=== PATIENT | male | born 1950 | race African-American/Black ===

== ENCOUNTER 2022-10-11 08:17 | Emergency (ER) | payer OTHER ==
--- OUTSIDE RECORDS SUMMARY | 2022-10-11 08:23 | XMS REPORT | Continuity of Care Document ---
:1950 Author Organization [facility] t Address [address] [place] [address] Care Team Providers Name Role Phone DARELL Attending Clinician Unavailable Mauri Brown Attending Clinician [phone] Edward Attending Clinician Unavailable Demarco Vallejo Attending Clinician DARELL Admitting Clinician Unavailable Edward Admitting Clinician Unavailable Keiry Valerio Admitting Clinician Payers Payer Name Policy Type Policy Number Effective Date Expiration Date Karlee DARLING ([facility]) [id number] 2021 00:00:00 Problems Condition Condition Condition Status Onset Resolution Last Treating Co mments Source Name Details Category Date Date Treatment Clinician Date Hyperchole Hyperchole Problem Active [facility] sterolemia sterolemia 02-05 [facility] Cannabis Cannabis Problem Active [facility] dependence Dependence 02-05 [facility] 00:00: ty [facility] Persistent Persistent Problem Active [facility] alcohol Alcohol 02-05 Communi abuse Abuse 00:00: ty 00 [facility] Chronic Chronic Problem Active [place] pain Pain 02-05 Communi syndrome Syndrome 00:00: ty 00 [facility] Hypertensi Hypertensi Problem Active S ween[facility] ve ve 02-05 Communi disorder Disorder 00:00: ty [facility] Coronary Coronary Problem Active [place] arterioscl Arterioscl 02-05 Co mmuni erosis erosis 00:00: ty [facility] 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 00:00: ty interverte Interverte 00 Ho spita bral disc bral Disc l [facility] Chronic Chronic Problem Active [place] back pain Back Pain 02-05 Comm uni 00:00: ty 00 [facility] Stented Stented Problem Active [place] artery Artery 02-05 Communi 00:00: ty 00 [facility] Pain of Pain of Problem Active [place] left knee Left Knee 02-05 Comm uni region Region 00:00: ty 00 [facility] 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 00 Ho spita [facility] Heavy Heavy Problem Active [place] smoker Smoker 02-05 Communi (over 20 (over 20 00:00: ty per day) per Day) 00 [facility] ACUTE ACUTE Diagnosis Active 2015-092016-06-06 Mem oria RENAL RENAL 0- 23:48:00 l FAILURE, FAILURE, 00:00: Blue cazares HYPONATREM HYPONATREM 00 IA, SYNCO IA, SYNCO Active 06/06/2016 [facility] Mo YAMINI, FALL YAMINI, FALL Diagnosis Active 2015-092016-06-21 Memoria Active 005 22:14:00 l 06/06/2016 00:00: Blue cazares [place] [id number] 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 ACUTE ACUTE Diagnosis Active 2016-06-21 Mem oria KIDNEY KIDNEY 22:14:00 l FAILURE, FAILURE, Blue cazares UNSPECIFIE UNSPECIFIE D D Active [facility] Allergies, Adverse Reactions, Alerts Allergy Allergy Status Severity Reaction(s) Onset Inactive Treating Comm ents Source Name Type Date Date Clinician iodine iodine Active Andree Hassan Social History Social Habit Start Date Stop Date Quantity Comments Source Social History 2016-06-07 2016-06-07 Arturo duong 05:03:10 05:03:10 Smoking Status Start Date Stop Date Source Heavy Tobacco Smoker [place] [facility] Medications Ordered Filled Start Stop Current Ordering Indication Dosage Frequency Signature Comments Components Source Medication Medication Date Date Medication? Clinician (SIG) Name Name Acetaminoph 2015-09 Yes 1 tab, PO, Memoria en 300 MG / 0-16 Q4H, PRN l Codeine 16:16: Pain, X 4 Patsy nn Phosphate 00 day, # 24 30 MG Oral tab, 0 Tablet Refill(s) [Tylenol with Codeine #3] tamsulosin 2015-09 Yes 0.4 mg = 1 M emoria 0.4 mg oral 0-16 cap, PO, l capsule 16:10: After [place] 00 Dinner, # 30 cap, 0 Refill(s), Pharmacy: [place] [address] Probiotic 2015-09 Yes 1 cap, PO, Me moria Formula 0-16 Daily, # l oral 16:10: 30 cap, 0 [place] capsule 00 Refill(s), Pharmacy: [place] [address] Metronidazo 2015-09 Yes 500 mg = 1 Memoria le 500 MG 0-16 tab, PO, l Oral Tablet 16:10: Q8H, X 7 He rmann [Flagyl] 00 day, # 21 tab, 0 Refill(s), Pharmacy: [place] [address] Ciprofloxac 2015-09 Yes 250 mg = 1 Memoria in 250 MG 0-16 tab, PO, l Oral Tablet 16:10: Q12H, X 7 H ermann [Cipro] 00 day, # 14 tab, 0 Refill(s), Pharmacy: [place] [address] metoprolol 2015-09 Yes 25 mg = 1 Me moria tartrate 25 0-16 tab, PO, l mg oral 16:10: Q12H, # 60 Herm arden tablet 00 tab, 0 Refill(s), Pharmacy: [place] [address] Morphine 2015-09 No Notes: Memoria 0-15 (Same l 12:54: as:MORPhin Mo 00 e Sulfate) Acetaminoph 2015-09 No Notes: Gurvinder pamela en 325 MG / 0-15 (Same as: l Hydrocodone 12:53: [place] Patsy nn Bitartrate 00 325/5) Do 5 MG Oral not exceed Tablet 4gm/day of [[place] acetaminop 5/325] hen. fat 2015-09 No Notes: Memoria emulsion, 0-15 (Same as: l intravenous 03:00: Intralipid Mo 00 , Liposyn) Infuse through a 1.2 micron filter TPN, adult 2015-09 No 1,490 mL, Me moria solution 0-15 Rate: 60 l 1,490 mL 03:00: ml/hr, Infuse over: 24.8 hr, Route: IV, Dosing Weight 70.909 kg, Total Volume: 1,490, Start date: 06/15/16 22:00:00 CDT, Duration: 24 hr, Stop date: 06/16/16 21:59:00 CDT Marcaine 2015-09 No Notes: Memoria HCl with 0-14 (bupivacai l Epinephrine 03:48: ne-epi Herm arden 0.5%-1:200, 00 0.5%-1:200 000 ,000 30 ml preservativ VL) Not e-free for use in injectable continuous solution infusion. (Same As: Marcaine w/Epi) Kenalog-40 2015-09 No Notes: Memor ia 0-14 "Preservat l 03:48: azra Free" [place] 00 Zosyn 2015-09 No Notes: Memoria 0-14 (Same as: l 01:00: Zosyn) Dosing based on Piperacill in component MEDICATION WASTE Product Size: 3375 mg Product Wasted: ___ mg Morphine 2015-09 No Notes: Memoria 0-13 (Same l 18:24: as:MORPhin [place] 00 e Sulfate) Marcaine 2015-09 No Notes: Memoria HCl with 0-13 (bupivacai l Epinephrine 15:20: ne-epi Herm arden 0.5%-1:200, 00 0.5%-1:200 000 ,000 30 ml injectable VL) Not solution for use in continuous infusion. (Same As: Marcaine w/Epi) TPN, adult 2015-09 No 1,490 mL, Me moria solution 0-13 Rate: 60 l 1490 mL 03:00: ml/hr, [place] 00 Infuse over: 24.8 hr, Route: IV, Dosing Weight 70.909 kg, Total Volume: 1,490, Start date: 06/13/16 22:00:00 CDT, Duration: 1 day, Stop date: 06/21/16 19:27:00 CDT fat 2015-09 No Notes: Memoria emulsion, 0-13 (Same as: l intravenous 03:00: Intralipid [place] 00 , Liposyn) potassium 2015-09 No Notes: Memori a chloride 0-12 (Same as: l 19:00: KCL) [place] Infuse no faster than 10 mEq/hr if given peripheral ly. sodium 2015-09 No 1,000 mL, Memori a chloride 0-12 Rate: 40 l 0.9% 1000 08:20: ml/hr, Blue n ml INJ 00 Infuse 1,000 mL over: 25 hr, Route: IV, Dosing Weight 70.909 kg, Total Volume: 1,000, Start date: 06/13/16 3:20:00 CDT, Duration: 30 day, Stop date: 07/13/16 3:19:00 CASTING COORDINATOR TPN, adult 2015-09 No 1,490 mL, Me moria solution 0-12 Rate: 60 l 1490 mL 03:00: ml/hr, Infuse over: 24.8 hr, Route: IV, Dosing Weight 70.909 kg, Total Volume: 1,490, Start date: 06/12/16 22:00:00 CDT, Duration: 1 day, Stop date: 06/13/16 15:28:00 CDT MORPhine 2015-09 No 30 mg, 30 Gurvinder pamela sulfate [employer] 0-12 mL, Route: l 30 mg/30 ml 01:00: IV, Blue n INJ syringe 00 Initial 30 mg Loading Dose: 2 mg, [employer]OM[employer]BILE [employer] Dose: 1 mg, AUTOM[employer]BILE [employer]ER Lockout: 10 minutes, Continuous Basal Rate: 0 mg, 4 Hour Limit (In MG): 30, Drug Form: INJ, Continuous , Start date: 06/12/16 20:00:00 CDT, Duration: 30 day, Stop date: 07/12/16.. . morphine 2015-09 No Notes: Memoria Sulfate 30 0-10 PCADose: l mg + 09:12: 1mg Delay: 10min Basal rate: 4hr limit:30mg (Same as:[place]) Metronidazo 2015-09 No Notes: Gurvinder pamela le 0-10 (Same as: l 07:37: Flagyl) Avoid alcohol. Protonix 2015-09 No Notes: For Mem oria 0-09 IV push l 21:30: reconstitu [place] 00 te with 10 ml 0.9% sodium chloride and push over 2 minutes. (Same as: Protonix) Metronidazo 2015-09 No Notes: Gurvinder pamela le 0-09 (Same as: l 16:00: Flagyl) Mo 00 Take with food/ avoid alcohol 200 ML 2015-09 No Notes: Do Memori a Ciprofloxac 0-09 not l in 2 MG/ML 15:00: refrigerat H ermann Injection 00 e [Cipro] Aspirin 2015-09 No Notes: Do Memor ia 0-09 not crush l 14:00: or chew. [place] (Same As: Ecotrin) Finasteride 2015-09 No Notes: Gurvinder pamela 0-09 (Same as: l 14:00: Proscar) "Do Not Crush" Women of childbeari ng age should not touch or handle broken tablets Morphine 2015-09 No Notes: Memoria 0-09 PCADose: l 09:30: 1mg Delay: 10mins Basal rate:0 4hr limit 30mg: (Same as:[place]) glycopyrrol 2015-09 No Route: IV, Memoria ate (ANES) 0-09 Drug form: l 09:08: INJ, ONCE, Stop date: 06/10/16 4:08:00 CDT neostigmine 2015-09 No Route: IV, Memoria (ANES) 0-09 Drug form: l 09:08: INJ, ONCE, Stop date: 06/10/16 4:08:00 CDT Calcium 2015-09 No 1,000 mL, Memor ia Chloride 0-09 Rate: 125 l 0.0014 09:07: ml/hr, MEQ/ML / 00 Infuse Potassium over: 8 Chloride hr, Route: 0.004 IV, Dosing MEQ/ML / Weight Sodium 70.909 kg, Chloride Total 0.103 Volume: MEQ/ML / 1,000, Sodium Start Lactate date: 0.028 06/10/16 MEQ/ML 4:07:00 Injectable CDT, Solution Duration: 30 day, Stop date: 07/10/16 4:06:00 CASTING COORDINATOR Naloxone 2015-09 No Notes: Memoria 0-09 Same as l 09:07: Narcan norepinephr 2015-09 No Route: IV, Memoria ine (ANES) 0-09 Drug form: l 08:43: INJ, ONCE, Stop date: 06/10/16 3:43:00 CDT metoprolol 2015-09 No Route: IV, M emoria (ANES) 0-09 Drug form: l 08:43: INJ, ONCE, Stop date: 06/10/16 3:43:00 CDT succinylcho 2015-09 No Route: IV, Memoria line (ANES) 0-09 Drug form: l 08:38: INJ, ONCE, Stop date: 06/10/16 3:38:00 CDT propofol 2015-09 No Route: IV, Mem oria (ANES) 0-09 Drug form: l 08:38: INJ, ONCE, Stop date: 06/10/16 3:38:00 CDT rocuronium 2015-09 No Route: IV, M emoria (ANES) 0-09 Drug form: l 08:38: INJ, ONCE, Stop date: 06/10/16 3:38:00 CDT midazolam 2015-09 No Route: IV, Me moria (ANES) 0-09 Drug form: l 08:38: SOLN, ONCE, Stop date: 06/10/16 3:38:00 CDT fentaNYL 2015-09 No Route: IV, Mem oria (ANES) 0-09 Drug form: l 08:38: INJ, ONCE, Stop date: 06/10/16 3:38:00 CDT LR 1000 mL 2015-09 No Route: IV, M emoria INJ (ANES) 0-09 Total l 07:35: Volume: [place] 00 1,000, Start date: 06/10/16 2:35:00 CDT, Stop date: 06/10/16 3:35:00 CDT Cefoxitin 2015-09 No Notes: Memori a 0-09 (Same As: l 06:00: Mefoxin) MEDICATION WASTE Product Size: 2000 mg Product Wasted: __0_ mg Benadryl 2015-09 Yes Notes: Memoria 0-09 (Same as: l 03:32: Benadryl) Prednisone 2015-09 Yes Notes: Memor ia 0-09 Take with l 03:31: food. metoprolol 2015-09 No Notes: Memor ia tartrate 0-09 (Same as: l 02:00: Lopressor) Flomax 2015-09 No Notes: Memoria 0-08 (Same As: l 22:00: Flomax) "Do Not Crush" D5W 1/2NS 2015-09 No 1,000 mL, Mem oria 1,000 mL 0-08 Rate: 75 l 20:58: ml/hr, Infuse over: 13.3 hr, Route: IV, Dosing Weight 70.909 kg, Total Volume: 1,000, Start date: 06/09/16 15:58:00 CDT, Duration: 30 day, Stop date: 07/09/16 15:57:00 CASTING COORDINATOR Metoprolol 2015-09 No Notes: Memor ia 0-08 (Same as: l 19:52: Lopressor) Push over 2 minutes Folic Acid 2015-09 Yes 1 mg = 1 Mem oria 1 MG Oral 0-08 tab, PO, l Tablet 19:31: Daily, # [place] 00 14 tab, 0 Refill(s), Pharmacy: [facility] amLODIPine 2015-09 Yes 5 mg = 1 Mem oria 5 mg oral 0-08 tab, PO, l tablet 19:31: Daily, # [place] 00 30 tab, 0 Refill(s), Pharmacy: [facility] simvastatin 2015-09 Yes 20 mg = 1 M emoria 20 mg oral 0-08 tab, PO, l tablet 19:31: Bedtime, # Patsy nn 00 30 tab, 0 Refill(s), Pharmacy: [facility] Ciprofloxac 2015-09 No 250 mg = 1 Memoria in 250 MG 0-08 tab, PO, l Oral Tablet 19:31: Q12H, for H ermann [Cipro] 00 UTI, X 3 day, # 6 tab, 0 Refill(s), Pharmacy: [facility] thiamine 2015-09 Yes 100 mg = 1 Mem oria 100 mg oral 0-08 tab, PO, l tablet 19:31: Daily, X Mo 00 14 day, # 14 tab, 0 Refill(s), Pharmacy: [facility] [id number] Acetaminoph 2015-09 Yes 1 tab, PO, Memoria en 325 MG / 0-08 Q6H, PRN l Hydrocodone 19:20: Pain Score Mo Bitartrate 00 7-10, 0 7.5 MG Oral Refill(s) Tablet [[place] 7.5/325] simvastatin 2015-09 No 20 mg = 1 M emoria 20 mg oral 0-08 tab, PO, l tablet 19:19: Bedtime, 0 Patsy nn 00 Refill(s) clopidogrel 2015-09 Yes 75 mg = 1 M emoria 75 MG Oral 0-08 tab, PO, l Tablet 19:19: Daily, 0 Mo [Plavix] 00 Refill(s) Amlodipine 2015-09 No Notes: Memor ia 0-08 (Same as: l 17:36: Norvasc) Milk of 2015-09 No Notes: Memoria Magnesia 0-07 (Same as: l 21:02: Milk of [place]es[place], MOM) Folic Acid 2015-09 No Notes: Memor ia 0-07 (Same as: l 14:00: Folvite) Thiamine 2015-09 No Notes: [facility] 0-07 (Same As: l 14:00: Vitamin B1) Ceftriaxone 2015-09 No Notes: Gurvinder pamela 0-07 (Same As: l 13:58: Rocephin). Use with 100 mL NS and infuse over 30 min MEDICATION WASTE Product Size: 1000 mg Product Wasted: ___ mg Famotidine 2015-09 No Notes: Memor ia 20 MG Oral 0-06 (Same as: l Tablet 22:00: Pepcid) Lovenox 2015-09 No Notes: [facility]oria 0-06 (Same as: l 17:00: Lovenox) Ativan 2015-09 No Notes: [facility] 0-06 (Same as: l 16:44: Ativan) Streptococc 2015-09 No Notes: Gurvinder pamela us 0-06 Lightly l pneumoniae 14:00: roll vial He rmann serotype 1 00 (DO NOT capsular SHAKE) antigen before diphtheria administra [id number] tion. protein (Same as: conjugate Prevnar vaccine / 13) Streptococc us pneumoniae serotype 14 capsular antigen diphtheria [id number] protein conjugate vaccine / Streptococc us pneumoniae serotype 18C capsular antigen d influenza 2015-09 No Notes: Memori a virus 0-06 (Same as: l vaccine, 14:00: Fluzone Blue n inactivated 00 Quadrivale nt, Fluarix Quadrivale nt) For 3 years of age and older (0.5 mL IM) Shake well before use Protonix 2015-09 No Notes: Memoria 0-06 Tablet l 12:30: should not [place] 00 be chewed or crushed. (Same as: Protonix) sodium 2015-09 No 1,000 mL, Memori a chloride 0-06 Rate: 100 l 0.9% 1000 06:33: ml/hr, Blue n ml INJ 00 Infuse 1,000 mL over: 10 hr, Route: IV, Dosing Weight 70.909 kg, Total Volume: 1,000, Start date: 06/07/16 1:33:00 CDT, Duration: 30 day, Stop date: 07/07/16 1:32:00 CDT Ondansetron 2015-09 No Notes: Gurvinder pamela 0-06 (Same as: l 06:17: Zofran) [place] 00 MEDICATION WASTE Product Size: 4 mg Product Wasted: ___ mg Morphine 2015-09 No Notes: Memoria 0-06 (Same l 06:17: as:MORPhin [place] 00 e Sulfate) Acetaminoph 2015-09 No Notes: Do M emoria en 0-06 not exceed l 06:17: 4 gm/day. Mo 00 (Same as: Tylenol) Plavix 2015-09 No PO, Daily, Memor ia 0-06 0 l 00:37: Refill(s) [place] 00 Acetaminoph 2015-09 No 1 tab, PO, Memoria en 325 MG / 0-06 Daily, PRN l Hydrocodone 00:37: Pain Score [place] Bitartrate 00 6-10, 0 7.5 MG Oral Refill(s) Tablet atorvastati atorvastati No 1 Q1D atorvastat [place] n 10 mg n 10 mg in 10 mg Commu ni tablet Take tablet Take tablet ty 1 tablet 1 tablet Take 1 Hospi ta every day every day tablet l by oral by oral every day Clin ics route. route. by oral route. carvedilol carvedilol No carvedilol [place] 12.5 mg 12.5 mg 12.5 mg Commun i tablet Take tablet Take tablet ty 1 tablet 1 tablet Take 1 Hospi ta BID by BID by tablet BID l mouth mouth by mouth Clinics clopidogrel clopidogrel No clopidogre [place] 75 mg 75 mg l 75 mg Communi tablet Take tablet Take tablet ty 1 tablet 1 tablet Take 1 Hospi ta daily by daily by tablet l mouth mouth daily by Clinics mouth cyclobenzap cyclobenzap No cyclobenza [place] rine 10 mg rine 10 mg mayra 10 Communi tablet take tablet take mg tablet ty 1 tablet 1 tablet take 1 Hospi ta BID as BID as tablet BID l needed for needed for as needed Clinics muscle muscle for muscle spasms spasms spasms furosemide furosemide No furosemide [place] 20 mg 20 mg 20 mg Communi tablet Take tablet Take tablet ty 1 tablet 1 tablet Take 1 Hospi ta daily as daily as tablet l needed for needed for daily as Clinics swelling swelling needed for swelling hydrocodone hydrocodone No hydrocodon [place] 7.5 7.5 e 7.5 Communi mg-acetamin mg-acetamin mg-acetami ty ophen 325 ophen 325 nophen 325 Hospita mg tablet mg tablet mg tablet l TAKE 1 TAKE 1 TAKE 1 Clinics TABLET BY TABLET BY TABLET BY MOUTH TWICE MOUTH TWICE MOUTH DAILY DAILY TWICE NEEDED FOR NEEDED FOR DAILY MODERATE MODERATE NEEDED FOR PAIN PAIN MODERATE PAIN vitamin D3 vitamin D3 No 1capsul Q1D vitamin D3 [place] 1,250 mcg 1,250 mcg e(s) 1,250 mcg Communi (50,000 (50,000 (50,000 ty unit)-vitam unit)-vitam unit)-[facility] in K2 200 in K2 200 min K2 200 l mcg capsule mcg capsule mcg C linics Take 1 Take 1 capsule capsule capsule Take 1 every day every day capsule by oral by oral every day route. route. by oral route. Immunizations Ordered Immunization Filled Immunization Date Status Commen ts Source Name Name influenza, influenza, 2021-05-03 Completed [place] injectable, injectable, 00:00:00 [facility] quadrivalent quadrivalent [facility] pneumococcal pneumococcal 2018-07-02 Completed [place] polysaccharide PPV23 polysaccharide PPV23 00:00:00 [facility] pneumococcal 2016-06-07 Completed [facility] 13-valent vaccine 13:54:00 [place] influenza virus 2016-06-07 Completed [facility] vaccine, inactivated 13:53:00 Herm arden Vital Signs Vital Name Observation Time Observation Value Comments Source BP Diastolic 2022-02-05 00:00:00 68 mm[Hg] [facility] s Height 2022-02-05 00:00:00 69 [in_i] [facility] s BMI (Body Mass 2022-02-05 00:00:00 22.3 kg/m2 [facility] BP Systolic 2022-02-05 00:00:00 108 mm[Hg] [facility] s Body Weight 2022-02-05 00:00:00 2416 [oz_av] [facility] s Respitory Rate 2016-06-17 17:39:00 Memori al Mo Temperature Oral (F) 2016-06-17 17:39:00 98.6 F [facility] [place] Heart Rate 2016-06-17 17:39:00 [facility] Systolic (mm Hg) 2016-06-17 17:39:00 Gurvinder rial Mo Diastolic (mm Hg) 2016-06-17 17:39:00 Mem orial [place] Systolic (mm Hg) 2016-06-17 13:29:00 Gurvinder rial Mo Diastolic (mm Hg) 2016-06-17 13:29:00 Mem orial [place] Heart Rate 2016-06-17 13:29:00 [facility] Mo Respitory Rate 2016-06-17 13:29:00 Memori al Mo Temperature Oral (F) 2016-06-17 13:29:00 98.1 F [facility] [place] Respitory Rate 2016-06-17 12:33:00 Memori al Mo Heart Rate 2016-06-17 09:00:00 [facility] Mo Systolic (mm Hg) 2016-06-17 09:00:00 Gurvinder rial Mo Diastolic (mm Hg) 2016-06-17 09:00:00 Mem orial Mo Temperature Oral (F) 2016-06-17 09:00:00 98.4 F [facility] Mo Height 2016-06-07 05:15:00 175.26 cm Arturo Hassan Weight 2016-06-07 05:08:00 Arturo Hassan BMI Calculated 2016-06-07 05:08:00 Ruben Greene Height 2016-06-07 05:08:00 175.26 cm Arturo Hassan Procedures Procedure Date / Time Performing Clinician Source Performed Appendectomy Arturo Hassan Placement of stent in [facility] cardiac conduit Hernia Repair [facility] Appendectomy [facility] Dental Surgery Procedure [facility] Back Surgery [facility] Placement of Stent in [facility] s Encounters Start End Encounter Admission Attending Care Care Encounter Source Date/Time Date/Time Type Type Clinicians Facility Department ID 2022-05-26 2022-05-26 Outpatient ERICKSON_R [facility] [id number] [place] 00:00:00 00:00:00 0924 [facility] 2022-04-21 2022-04-21 Outpatient ERICKSON_R [facility] [address] [place] 00:00:00 00:00:00 0820 [facility] 2022-03-14 2022-03-14 Outpatient ERICKSON_R [facility] [address] [place] 05:20:00 05:20:00 0713 [facility] i [facility] 2022-02-05 2022-02-05 Outpatient ERICKSON_R [facility] [address] [place] 12:46:00 12:46:00 0606 Commun i ty [facility] Clinics 2022-02-05 2022-02-05 Mauri [facility] [place] 00:00:00 00:00:00 [facility] [address] [facility] [address] Clinic s [place], [place] CL[place]IC, [id number] KARLI , Ph. 2022-02-05 2022-02-05 Outpatient Karli [facility] [id number] 00:00:00 00:00:00 Mauri [id number] [place] [id number] 2022-02-02 2022-02-02 Outpatient ERICKSON_R [facility] [address] [place] 10:16:00 10:16:00 0603 [facility] i [facility] 2020-10-31 2020-10-31 Outpatient Young_J MMG [id number] [id number] [place] 02:01:00 02:01:00 [facility] 2016-06-07 2016-06-17 Inpatient nullFlavo [facility] [id number] Mem[place] 06:17:00 19:00:00 r [place] 79 l [facility] 2016-06-07 2016-06-17 Outpatient Ogunbiyi, [facility] [id number] 01:17:00 14:00:00 Demarco 79 Иринаla Results Test Description Test Time Test Comments Results Result Comments Source CHEM PANEL 2016-06-17 09:00:00 Test Item Value Reference Range Interpretation Comme nts CO2 (test code = CO2) 25 24-32 [facility] [id number] 09:00:00 Test Item Value Reference Range Interpretation Comments Potassium Lvl (test code = Potassium 4.0 3.5-5.1 Lvl) [facility] [id number] 09:00:00 Test Item Value Reference Range Interpretation Comments Chloride Lvl (test code = Chloride Lvl) 103 95-109 [facility] [id number] 09:00:00 Test Item Value Reference Range Interpretation Comments eGFR (test code = eGFR) 99 [facility] [id number] 09:00:00 Test Item Value Reference Range Interpretation Comments B/C Ratio (test code = B/C Ratio) 12 6-25 [facility] [id number] 09:00:00 Test Item Value Reference Range Interpretation Comments Globulin (test code = Globulin) 5.0 2.7-4.2 [facility] [id number] 09:00:00 Test Item Value Reference Range Interpretation Comments A/G Ratio (test code = A/G Ratio) 0.4 0.7-1.6 [facility] [id number] 09:00:00 Test Item Value Reference Range Interpretation Comments ALANINE AMINOTRANSFERASE 60 See_Comment [A utomated message] (test code = ALANINE The sys tem which AMINOTRANSFERASE) generated this result transmitted ref erence range: <=65. Th e reference range was not used to int erpret this result as normal/abnormal . [facility]2016-10-16 09:00:00 Test Item Value Reference Range Interpretation Comments Alk Phos (test code = Alk Phos) 154 39-136 [facility]2016-10-16 09:00:00 Test Item Value Reference Range Interpretation Comments Glucose Lvl (test code = Glucose Lvl) 87 70-99 [facility]2016-10-16 09:00:00 Test Item Value Reference Range Interpretation Comments Albumin Lvl (test code = Albumin Lvl) 2.1 3.5-5.0 [facility]2016-10-16 09:00:00 Test Item Value Reference Range Interpretation Comments Bili Total (test code = Bili Total) 0.3 0.2-1.3 [facility]2016-10-16 09:00:00 Test Item Value Reference Range Interpretation Comments Calcium Lvl (test code = Calcium Lvl) 8.7 8.5-10.5 [facility]2016-10-16 09:00:00 Test Item Value Reference Range Interpretation Comments Total Protein (test code = Total 7.1 6.4-8.4 Protein) [facility]2016-10-16 09:00:00 Test Item Value Reference Range Interpretation Comments AGAP (test code = AGAP) 13.0 10.0-20.0 [facility]2016-10-16 09:00:00 Test Item Value Reference Range Interpretation Comments ASPARTATE TRANSAMINASE 88 See_Comment [Aut omated message] (test code = ASPARTATE The s ystem which TRANSAMINASE) generated this result transmitted ref erence range: <=37. Th e reference range was not used to interpr et this result as normal/abnormal . [facility]2016-10-16 09:00:00 Test Item Value Reference Range Interpretation Comments BUN (test code = BUN) 11 7-22 [facility]2016-10-16 09:00:00 Test Item Value Reference Range Interpretation Comments Sodium Lvl (test code = Sodium Lvl) 137 135-145 [facility]2016-10-16 09:00:00 Test Item Value Reference Range Interpretation Comments Creatinine Lvl (test code = Creatinine 0.92 0.50-1.40 Lvl) [facility]nzdt[facility]zTETTAXIESTLH2685-19-95 08:50:00 Test Item Value Reference Range Interpretation Comments ALANINE AMINOTRANSFERASE 27 See_Comment [A utomated message] (test code = ALANINE The sys tem which AMINOTRANSFERASE) generated this result transmitted ref erence range: <=65. Th e reference range was not used to int erpret this result as normal/abnormal . [facility]XdceehzEBAMXMHOHGCQ4965-30-49 08:50:00 Test Item Value Reference Range Interpretation Comments BUN (test code = BUN) 11 7-22 [facility]akwlhdRZHFEDBNNYDG8491-99-83 08:50:00 Test Item Value Reference Range Interpretation Comments AGAP (test code = AGAP) 14.5 10.0-20.0 [facility]PtnnypmJBWODSJQVAEM5452-60-93 08:50:00 Test Item Value Reference Range Interpretation Comments Bili Total (test code = Bili Total) 0.2 0.2-1.3 [facility] CenterCfkivpkXLWGIZLPZZCK0530-21-42 08:50:00 Test Item Value Reference Range Interpretation Comments Total Protein (test code = Total 5.9 6.4-8.4 Protein) [facility]KovftqjGNQFEGDJMAKB3199-49-49 08:50:00 Test Item Value Reference Range Interpretation Comments B/C Ratio (test code = B/C Ratio) 14 6-25 [facility] CenterBbkcjdtURGJKQZDQQSI4363-54-68 08:50:00 Test Item Value Reference Range Interpretation Comments ASPARTATE TRANSAMINASE 51 See_Comment [Aut omated message] (test code = ASPARTATE The s ystem which TRANSAMINASE) generated this result transmitted ref erence range: <=37. Th e reference range was not used to interpr et this result as normal/abnormal . [facility] XsghdgyKPTIROSKRZMG3438-00-08 08:50:00 Test Item Value Reference Range Interpretation Comments Sodium Lvl (test code = Sodium Lvl) 136 135-145 [facility] CenterJqwmutkUPHENSTOCNEK4897-81-87 08:50:00 Test Item Value Reference Range Interpretation Comments Creatinine Lvl (test code = Creatinine 0.81 0.50-1.40 Lvl) [place] 286986-10-15 08:50:00 Test Item Value Reference Range Interpretation Comments CO2 (test code = CO2) 25 24-32 [facility] CenterNydnrwnFTTKHUTIQBLD5415-15-92 08:50:00 Test Item Value Reference Range Interpretation Comments Potassium Lvl (test code = Potassium 4.5 3.5-5.1 Lvl) [facility] CenterGsjdsklHAJWXILEPAVG1829-45-45 08:50:00 Test Item Value Reference Range Interpretation Comments Calcium Lvl (test code = Calcium Lvl) 7.9 8.5-10.5 [facility] CenterOmxwqwdYKPNJZHMUKZE6995-35-71 08:50:00 Test Item Value Reference Range Interpretation Comments Chloride Lvl (test code = Chloride Lvl) 101 95-109 [facility] CenterZdrhyiqZQRCSLLETZCU8197-96-15 08:50:00 Test Item Value Reference Range Interpretation Comments eGFR (test code = eGFR) 106 [facility] CenterLxuwhtvMEGXUSJINWIF9168-48-91 08:50:00 Test Item Value Reference Range Interpretation Comments A/G Ratio (test code = A/G Ratio) 0.5 0.7-1.6 [facility] CenterDjkscgcOCPFVXRVMONU8874-69-06 08:50:00 Test Item Value Reference Range Interpretation Comments Globulin (test code = Globulin) 3.9 2.7-4.2 [facility] CenterJzchhklEIUMNPRUAHAB6834-53-30 08:50:00 Test Item Value Reference Range Interpretation Comments Alk Phos (test code = Alk Phos) 118 39-136 [facility] CenterTspdyxwLNBYIAFPPIVD4669-13-78 08:50:00 Test Item Value Reference Range Interpretation Comments Glucose Lvl (test code = Glucose Lvl) 116 70-99 [facility] CenterRyhjzmaCDGXYHKIYBPF9883-65-19 08:50:00 Test Item Value Reference Range Interpretation Comments Albumin Lvl (test code = Albumin Lvl) 2.0 3.5-5.0 [facility] Anipipo BRZYB4423-56-66 09:30:00 Test Item Value Reference Range Interpretation Comments A/G Ratio (test code = A/G Ratio) 0.5 0.7-1.6 [facility] [place] [id number] 09:30:00 Test Item Value Reference Range Interpretation Comments Globulin (test code = Globulin) 3.6 2.7-4.2 [facility] [place] [id number] 09:30:00 Test Item Value Reference Range Interpretation Comments B/C Ratio (test code = B/C Ratio) 12 6-25 [facility]2016-10-14 09:30:00 Test Item Value Reference Range Interpretation Comments AGAP (test code = AGAP) 11.3 10.0-20.0 [facility]2016-10-14 09:30:00 Test Item Value Reference Range Interpretation Comments eGFR (test code = eGFR) 107 [facility]2016-10-14 09:30:00 Test Item Value Reference Range Interpretation Comments Bili Total (test code = Bili Total) 0.3 0.2-1.3 [facility]2016-10-14 09:30:00 Test Item Value Reference Range Interpretation Comments Chloride Lvl (test code = Chloride Lvl) 104 95-109 [facility]2016-10-14 09:30:00 Test Item Value Reference Range Interpretation Comments Calcium Lvl (test code = Calcium Lvl) 7.7 8.5-10.5 [facility]2016-10-14 09:30:00 Test Item Value Reference Range Interpretation Comments Potassium Lvl (test code = Potassium 4.3 3.5-5.1 Lvl) [facility]2016-10-14 09:30:00 Test Item Value Reference Range Interpretation Comments CO2 (test code = CO2) 26 24-32 [facility]2016-10-14 09:30:00 Test Item Value Reference Range Interpretation Comments ASPARTATE TRANSAMINASE 25 See_Comment [Aut omated message] (test code = ASPARTATE The s te which TRANSAMINASE) generated this result transmitted ref erence range: <=37. Th e reference range was not used to interpr et this result as normal/abnormal . [facility]2016-10-14 09:30:00 Test Item Value Reference Range Interpretation Comments Total Protein (test code = Total 5.4 6.4-8.4 Protein) [facility]2016-10-14 09:30:00 Test Item Value Reference Range Interpretation Comments Albumin Lvl (test code = Albumin Lvl) 1.8 3.5-5.0 [facility]2016-10-14 09:30:00 Test Item Value Reference Range Interpretation Comments ALANINE AMINOTRANSFERASE 16 See_Comment [A utomated message] (test code = ALANINE The sys tem which AMINOTRANSFERASE) generated this result transmitted ref erence range: <=65. Th e reference range was not used to int erpret this result as normal/abnormal . [facility]2016-10-14 09:30:00 Test Item Value Reference Range Interpretation Comments Glucose Lvl (test code = Glucose Lvl) 111 70-99 [facility]2016-10-14 09:30:00 Test Item Value Reference Range Interpretation Comments Creatinine Lvl (test code = Creatinine 0.80 0.50-1.40 Lvl) [facility]2016-10-14 09:30:00 Test Item Value Reference Range Interpretation Comments Sodium Lvl (test code = Sodium Lvl) 137 135-145 [facility]2016-10-14 09:30:00 Test Item Value Reference Range Interpretation Comments Alk Phos (test code = Alk Phos) 83 39-136 [facility]2016-10-14 09:30:00 Test Item Value Reference Range Interpretation Comments BUN (test code = BUN) 10 7-22 [facility]JgomvpqYWBORZBLKP7455-34-69 09:30:00 Test Item Value Reference Range Interpretation Comments Eosinophils # (test code 0.1 See_Comment [A utomated message] The = Eosinophils #) system whic h generated this result tra nsmitted reference range : <=0.5. The reference r nitesh was not used to int erpret this result as normal/abnormal . [facility]woodRkanrjfSDKJULJSNR3942-73-57 09:30:00 Test Item Value Reference Range Interpretation Comments Monocytes # (test code 1.1 See_Comment [Aut omated message] The = Monocytes #) system which generated this result tra nsmitted reference range : <=0.8. The reference r nitesh was not used to int erpret this result as normal/abnormal . [facility]woodCsdmzlvIVKPYSRPPW9940-52-66 09:30:00 Test Item Value Reference Range Interpretation Comments Lymphocytes # (test code = Lymphocytes 1.2 1.0-5.5 #) [facility]woodMvxpkaeILAVYYQBRO4189-62-64 09:30:00 Test Item Value Reference Range Interpretation Comments Lymphocytes (test code = Lymphocytes) 14.3 20.0-40.0 [place] 389266-10-14 09:30:00 Test Item Value Reference Range Interpretation Comments Segs (test code = Segs) 70.4 45.0-75.0 [facility]woodOwyluiuWYFYCVRRPR7671-69-32 09:30:00 Test Item Value Reference Range Interpretation Comments Monocytes (test code = Monocytes) 13.5 2.0-12.0 [facility]woodCxuzvxfCSCEECAJZY1039-06-64 09:30:00 Test Item Value Reference Range Interpretation Comments Segs-Bands # (test code = Segs-Bands #) 5.9 1.5-8.1 [facility]woodAkgvvwcEMWCAEJBSW3173-65-32 09:30:00 Test Item Value Reference Range Interpretation Comments Eosinophils (test code = 1.5 See_Comment [A utomated message] The Eosinophils) system which ge nerated this result tra nsmitted reference range : <=4.0. The reference r nitesh was not used to int erpret this result as normal/abnormal . [facility] KingwoodFggaxsoIEGLVGQGMP9801-22-25 09:30:00 Test Item Value Reference Range Interpretation Comments Basophils (test code = 0.3 See_Comment [Aut omated message] The Basophils) system which ge nerated this result tra nsmitted reference range : <=1.0. The reference r nitesh was not used to int erpret this result as normal/abnormal . [facility]woodDcatbmaGRMQLJIYHG2219-48-23 09:30:00 Test Item Value Reference Range Interpretation Comments Platelet (test code = Platelet) 314 133-450 [facility]woodDhmdrjbDOOFSVUIFF3740-69-72 09:30:00 Test Item Value Reference Range Interpretation Comments MPV (test code = MPV) 7.3 7.4-10.4 [facility]woodZwgipodQGPCKWQHCS5370-44-07 09:30:00 Test Item Value Reference Range Interpretation Comments RDW (test code = RDW) 12.9 11.5-14.5 [facility]woodOyrnluaHXGTVOAXQJ7671-42-86 09:30:00 Test Item Value Reference Range Interpretation Comments MCHC (test code = MCHC) 35.8 32.0-36.0 [facility]woodPwoxykrFFTLDMFYDN7184-70-86 09:30:00 Test Item Value Reference Range Interpretation Comments MCH (test code = MCH) 35.4 pg 27.0-31.0 [facility]woodAykxftsPVTQADVUMK4416-80-42 09:30:00 Test Item Value Reference Range Interpretation Comments MCV (test code = MCV) 98.9 80.0-94.0 [facility]woodHlnckvoVUNQMGCZBC5628-98-70 09:30:00 Test Item Value Reference Range Interpretation Comments Hct (test code = Hct) 32.6 42.0-54.0 [facility]woodRyxnkkbPBAMVNHHMU7290-45-76 09:30:00 Test Item Value Reference Range Interpretation Comments RBC X 10x6 (test code = RBC X 10x6) 3.29 4.70-6.10 [facility]woodKdsqmmpFVPKUNZQWF6184-13-89 09:30:00 Test Item Value Reference Range Interpretation Comments Hgb (test code = Hgb) 11.7 14.0-18.0 [facility] KingwoodIlycjviQRWPQLPSAN7728-73-35 09:30:00 Test Item Value Reference Range Interpretation Comments WBC X 10x3 (test code = WBC X 10x3) 8.4 3.7-10.4 [facility]2016-10-13 16:06:00 Test Item Value Reference Range Interpretation Comments Clarity BF (test code = See Note 1(06/14/16 Clarity BF) 11:06 AM) [facility]2016-10-13 16:06:00 Test Item Value Reference Range Interpretation Comments CellCnt BF Type (test Synovial (06/14/16 code = CellCnt BF 11:06 AM) Type) [facility]2016-10-13 16:06:00 Test Item Value Reference Range Interpretation Comments Color BF (test code = Light Yellow (06/14/16 Color BF) 11:06 AM) [facility]2016-10-13 16:06:00 Test Item Value Reference Range Interpretation Comments Supernat BF (test code = Light Yellow Supernat BF) *ABN*(06/14/16 11:06 AM) [facility]2016-10-13 16:06:00 Test Item Value Reference Range Interpretation Comments RBC BF (test code = RBC BF) 1672 [facility]2016-10-13 16:06:00 Test Item Value Reference Range Interpretation Comments WBC BF (test code = WBC BF) 9416 [facility]2016-10-13 16:06:00 Test Item Value Reference Range Interpretation Comments Segs BF (test code = Segs BF) 88 [facility]2016-10-13 16:06:00 Test Item Value Reference Range Interpretation Comments Macrophage BF (test code = Macrophage 3 BF) [facility] [id number] 16:06:00 Test Item Value Reference Range Interpretation Comments Lymph BF (test code = Lymph BF) 9 [facility] [id number] 16:06:00 Test Item Value Reference Range Interpretation Comments Urea BF (test code = Urea BF) no gt [facility]2016-10-13 16:06:00 Test Item Value Reference Range Interpretation Comments Urea BF Type (test Synovial (06/14/16 11:06 code = Urea BF Type) AM) [facility] [id number] 16:06:00 Test Item Value Reference Range Interpretation Comments LDH BF Type (test Synovial *NA*(06/14/16 code = LDH BF Type) 11:06 AM) [facility] [id number] 16:06:00 Test Item Value Reference Range Interpretation Comments LDH BF (test code = LDH BF) 267 [facility]2016-10-13 16:06:00 Test Item Value Reference Range Interpretation Comments Gluc BF Type (test Synovial (06/14/16 11:06 code = Gluc BF Type) AM) [facility] [id number] 16:06:00 Test Item Value Reference Range Interpretation Comments Glucose BF (test code = Glucose BF) 11 [facility] [id number] 16:06:00 Test Item Value Reference Range Interpretation Comments Crystal BF Type (test Synovial (06/14/16 code = Crystal BF 11:06 AM) Type) [facility]2016-10-13 16:06:00 Test Item Value Reference Range Interpretation Comments Crystal BF (test code = See Note 2(06/14/16 Crystal BF) 11:06 AM) [facility]annCHEM [id number] 09:00:00 Test Item Value Reference Range Interpretation Comments Phosphorus (test code = Phosphorus) 3.2 2.5-4.5 [facility] [id number] 09:00:00 Test Item Value Reference Range Interpretation Comments Magnesium Lvl (test code = Magnesium 2.4 1.8-2.4 Lvl) [facility] BudaCjviqklHWDZURRMFT6430-52-90 09:00:00 Test Item Value Reference Range Interpretation Comments Eosinophils # (test code 0.1 See_Comment [A utomated message] The = Eosinophils #) system [facility] h generated this result tra nsmitted reference range : <=0.5. The reference r nitesh was not used to int erpret this result as normal/abnormal . [facility]woodEzzgpajNSVXOGPGTD3590-64-89 09:00:00 Test Item Value Reference Range Interpretation Comments Segs-Bands # (test code = Segs-Bands #) 5.9 1.5-8.1 [facility]woodYkxmrqnANLJDIBLHO6941-91-10 09:00:00 Test Item Value Reference Range Interpretation Comments Monocytes # (test code 1.7 See_Comment [Aut omated message] The = Monocytes #) system which generated this result tra nsmitted reference range : <=0.8. The reference r nitesh was not used to int erpret this result as normal/abnormal . [facility] KingwoodYczljgnLELRKZLSFW4227-24-41 09:00:00 Test Item Value Reference Range Interpretation Comments Lymphocytes # (test code = Lymphocytes 1.2 1.0-5.5 #) [facility]woodYzohlaqSLPNUXRPNE5372-81-38 09:00:00 Test Item Value Reference Range Interpretation Comments Segs (test code = Segs) 66.0 45.0-75.0 [facility]woodEkvsfpxOGTLYIBXGT9085-40-59 09:00:00 Test Item Value Reference Range Interpretation Comments Lymphocytes (test code = Lymphocytes) 13.1 20.0-40.0 [facility]woodPoyivvpOFEBAPXPCD8753-28-81 09:00:00 Test Item Value Reference Range Interpretation Comments Eosinophils (test code = 1.3 See_Comment [A utomated message] The Eosinophils) system which ge nerated this result tra nsmitted reference range : <=4.0. The reference r nitesh was not used to int erpret this result as normal/abnormal . [facility]woodAngbzmqVBOLBZUNHH7387-04-83 09:00:00 Test Item Value Reference Range Interpretation Comments Monocytes (test code = Monocytes) 19.2 2.0-12.0 [facility]woodXrhccycFRCQXBJNXX2767-85-61 09:00:00 Test Item Value Reference Range Interpretation Comments Basophils (test code = 0.4 See_Comment [Aut omated message] The Basophils) system which ge nerated this result tra nsmitted reference range : <=1.0. The reference r nitesh was not used to int erpret this result as normal/abnormal . [facility] KingwoodUoahsvlUJWSLAMNQL3962-95-05 09:00:00 Test Item Value Reference Range Interpretation Comments WBC X 10x3 (test code = WBC X 10x3) 8.9 3.7-10.4 [facility]woodXocojalLYKIJATROQ6401-48-67 09:00:00 Test Item Value Reference Range Interpretation Comments MCV (test code = MCV) 98.6 80.0-94.0 [facility]woodIhtqxdlJCOHLWBNDG2207-35-23 09:00:00 Test Item Value Reference Range Interpretation Comments Hct (test code = Hct) 34.7 42.0-54.0 [facility]woodJqcwyjcVHXSABKUVF6486-92-78 09:00:00 Test Item Value Reference Range Interpretation Comments MCHC (test code = MCHC) 35.9 32.0-36.0 [facility]woodRdmrtovJXEBPHPPPO3333-76-69 09:00:00 Test Item Value Reference Range Interpretation Comments MCH (test code = MCH) 35.4 pg 27.0-31.0 [facility]woodUwcwbwmWECOMYXGGJ6906-83-63 09:00:00 Test Item Value Reference Range Interpretation Comments Hgb (test code = Hgb) 12.5 14.0-18.0 [facility]woodRezkdjhUXRAVKIMOX7631-26-40 09:00:00 Test Item Value Reference Range Interpretation Comments MPV (test code = MPV) 7.6 7.4-10.4 [facility]woodUcyfgzcLQZEIUKBOC3322-79-59 09:00:00 Test Item Value Reference Range Interpretation Comments Platelet (test code = Platelet) 253 133-450 [facility] KingwoodDdfbjawKSQHECHLYP3471-64-92 09:00:00 Test Item Value Reference Range Interpretation Comments RBC X 10x6 (test code = RBC X 10x6) 3.52 4.70-6.10 [facility]woodSpqtcxeMWTOKNGNCJ6419-50-00 09:00:00 Test Item Value Reference Range Interpretation Comments RDW (test code = RDW) 12.4 11.5-14.5 [facility]udaCdsotlmQJAYTPHZRC2822-24-15 09:00:00 Test Item Value Reference Range Interpretation Comments C-REACTIVE PROTEIN (test code = 214.0 C-REACTIVE PROTEIN) [facility]2016-10-12 08:17:45 Test Item Value Reference Range Interpretation Comments Bili Direct (test code 0.2 See_Comment [Aut omated message] The = Bili Direct) system which generated this result tra nsmitted reference range : <=0.3. The reference r nitesh was not used to int erpret this result as duane l/abnormal. [facility]2016-10-12 08:17:45 Test Item Value Reference Range Interpretation Comments Magnesium Lvl (test code = Magnesium 1.9 1.8-2.4 Lvl) [facility]woodWoskenqQJIVXMQMOR4782-32-53 08:17:45 Test Item Value Reference Range Interpretation Comments Lymphocytes # (test code = Lymphocytes 0.7 1.0-5.5 #) [facility] KingwoodAniakilFFMLOONRRT5618-80-66 08:17:45 Test Item Value Reference Range Interpretation Comments Monocytes # (test code 1.6 See_Comment [Aut omated message] The = Monocytes #) system which generated this result tra nsmitted reference range : <=0.8. The reference r nitesh was not used to int erpret this result as normal/abnormal . [facility]woodEqsvawhGTMWEDUGWH6498-12-84 08:17:45 Test Item Value Reference Range Interpretation Comments Basophils (test code = 0.2 See_Comment [Aut omated message] The Basophils) system which ge nerated this result tra nsmitted reference range : <=1.0. The reference r nitesh was not used to int erpret this result as normal/abnormal . [facility] KingwoodWescoduVWLGSRCCUC3900-19-45 08:17:45 Test Item Value Reference Range Interpretation Comments Eosinophils (test code = 0.5 See_Comment [A utomated message] The Eosinophils) system which ge nerated this result tra nsmitted reference range : <=4.0. The reference r nitesh was not used to int erpret this result as normal/abnormal . [facility]woodEzilsjzOKFAJCAEGC8970-98-73 08:17:45 Test Item Value Reference Range Interpretation Comments Segs-Bands # (test code = Segs-Bands #) 6.5 1.5-8.1 [facility]woodAbwsnrrXJWSTYPURX0329-43-54 08:17:45 Test Item Value Reference Range Interpretation Comments Lymphocytes (test code = Lymphocytes) 7.7 20.0-40.0 [place] 389266-10-12 08:17:45 Test Item Value Reference Range Interpretation Comments Segs (test code = Segs) 73.7 45.0-75.0 [facility]woodThptidjQIMULDSZCX7355-92-13 08:17:45 Test Item Value Reference Range Interpretation Comments Monocytes (test code = Monocytes) 17.9 2.0-12.0 [facility]woodCgkvgwfTNUIKDXXPK1015-22-21 08:17:45 Test Item Value Reference Range Interpretation Comments MPV (test code = MPV) 7.6 7.4-10.4 [facility]woodAhfrpazKXKNBEPDEQ8196-37-53 08:17:45 Test Item Value Reference Range Interpretation Comments MCHC (test code = MCHC) 36.0 32.0-36.0 [facility]woodAbvqrbnOEXTBUIDFC1095-96-05 08:17:45 Test Item Value Reference Range Interpretation Comments Platelet (test code = Platelet) 221 133-450 [facility]woodDknzzklMBCRTFOVPD8212-42-16 08:17:45 Test Item Value Reference Range Interpretation Comments RDW (test code = RDW) 12.8 11.5-14.5 [facility]woodEhvhdrlZIAIAORKNM2498-08-71 08:17:45 Test Item Value Reference Range Interpretation Comments Hct (test code = Hct) 34.2 42.0-54.0 [facility]woodYzmnazcTUPJBHFKSL3266-64-02 08:17:45 Test Item Value Reference Range Interpretation Comments MCV (test code = MCV) 97.9 80.0-94.0 [facility]woodWjunonxMEAFICVIWC8896-11-62 08:17:45 Test Item Value Reference Range Interpretation Comments Hgb (test code = Hgb) 12.3 14.0-18.0 [facility]woodGbwrkunBNQJBLEUQS0407-02-12 08:17:45 Test Item Value Reference Range Interpretation Comments MCH (test code = MCH) 35.2 pg 27.0-31.0 [facility]woodQzklzouMHCZMNUKHL9689-50-80 08:17:45 Test Item Value Reference Range Interpretation Comments WBC X 10x3 (test code = WBC X 10x3) 8.8 3.7-10.4 [facility]woodElcwjfsBCUDNYJUNC2570-88-05 08:17:45 Test Item Value Reference Range Interpretation Comments RBC X 10x6 (test code = RBC X 10x6) 3.49 4.70-6.10 [facility]udaFwlbxvfCUZAHDOTHA2766-08-23 08:17:45 Test Item Value Reference Range Interpretation Comments Prealbumin (test code = Prealbumin) 5.7 18.0-45.0 [facility]ESC[facility]78[facility] 08:17:45 Test Item Value Reference Range Interpretation Comments Trig (test code = Trig) 56 [facility]2016-10-11 14:25:00 Test Item Value Reference Range Interpretation Comments Phosphorus (test code = Phosphorus) 3.0 2.5-4.5 [facility]woodWaswlukDWGBEXNUOH2685-43-05 14:25:00 Test Item Value Reference Range Interpretation Comments PROTIME (test code = PROTIME) 13.4 s 12.0-14.7 [facility] KingwoodRvjnrtqARYKOWNKHN4485-23-31 14:25:00 Test Item Value Reference Range Interpretation Comments INR (test code = INR) 1.00 0.85-1.17 [facility] [id number] 14:25:00 Test Item Value Reference Range Interpretation Comments aPTT (test code = aPTT) 30.3 s 22.9-35.8 [id number] 14:25:00 Test Item Value Reference Range Interpretation Comments Trig (test code = Trig) 76 [facility]2016-10-11 07:20:00 Test Item Value Reference Range Interpretation Comments Magnesium Lvl (test code = Magnesium 2.1 1.8-2.4 Lvl) [id number] 07:20:00 Test Item Value Reference Range Interpretation Comments Eosinophils # (test code 0.1 See_Comment [A utomated message] The = Eosinophils #) system whic h generated this result tra nsmitted reference range : <=0.5. The reference r nitesh was not used to int erpret this result as normal/abnormal . [id number] 07:20:00 Test Item Value Reference Range Interpretation Comments Macrocyte (test code = 1+ *ABN*(06/12/16 Macrocyte) 2:20 AM) [id number] 08:50:00 Test Item Value Reference Range Interpretation Comments Macrocyte (test code = 1+ *ABN*(06/11/16 Macrocyte) 3:50 AM) [id number] 01:48:00 Test Item Value Reference Range Interpretation Comments Macrocyte (test code = 1+ *ABN*(06/09/16 Macrocyte) 8:48 PM) [facility]ATFR[facility]G7149-01-46 01:48:00 Test Item Value Reference Range Interpretation Comments RBC Morph (test code = See Note 1(06/09/16 RBC Morph) 8:48 PM) [facility] Hospit[id number] 01:48:00 Test Item Value Reference Range Interpretation Comments Plt Morph (test code = Normal (06/09/16 8:48 Plt Morph) PM) [facility] [id number] 23:32:00 Test Item Value Reference Range Interpretation Comments Total CK (test code = Total CK) 37 [facility] [id number] 23:32:00 Test Item Value Reference Range Interpretation Comments Troponin-I (test code no gt See_Comment [Auto mated message] The = Troponin-I) system which g enerated this result transmit yakov reference range : <=0.40. The reference r nitesh was not used to interpr et this result as duane l/abnormal. [facility] [id number] 20:38:00 Test Item Value Reference Range Interpretation Comments Troponin-I (test code no gt See_Comment [Auto mated message] The = Troponin-I) system which g enerated this result transmit yakov reference range : <=0.40. The reference r nitesh was not used to interpr et this result as duane l/abnormal. [facility] [id number] 20:38:00 Test Item Value Reference Range Interpretation Comments Total CK (test code = Total CK) 41 [facility] Hospit[id number] 20:38:00 Test Item Value Reference Range Interpretation Comments D-Dimer (test code = D-Dimer) 5.10 [facility] AND [id number] 20:00:00 Test Item Value Reference Range Interpretation Comments UA Sq Epi (test code = None Seen (06/09/16 3:00 UA Sq Epi) PM) [facility]] AND [id number] 20:00:00 Test Item Value Reference Range Interpretation Comments UA Urobilinogen (test code = UA 0.2 0.1-1.0 Urobilinogen) [facility] AND [id number] 20:00:00 Test Item Value Reference Range Interpretation Comments UA Leuk Est (test Negative (06/09/16 3:00 code = UA Leuk Est) PM) [facility] AND [id number] 20:00:00 Test Item Value Reference Range Interpretation Comments UA Nitrite (test code Negative (06/09/16 3:00 = UA Nitrite) PM) [facility] AND [id number] 20:00:00 Test Item Value Reference Range Interpretation Comments UA WBC (test code = UA WBC) 0-2 /HPF [facility] AND [id number] 20:00:00 Test Item Value Reference Range Interpretation Comments UA Bacteria (test code = UA Few /HPF Bacteria) [facility] AND [id number] 20:00:00 Test Item Value Reference Range Interpretation Comments UA RBC (test code 11-20 /HPF See_Comment [Automate d message] The = UA RBC) system which ge nerated this result tra nsmitted reference range : <=2. The reference range was not used to interpr et this result as normal/abnormal . [facility] AND [id number] 20:00:00 Test Item Value Reference Range Interpretation Comments UA Blood (test code = Large *ABN*(06/09/16 UA Blood) 3:00 PM) [facility] AND [id number] 20:00:00 Test Item Value Reference Range Interpretation Comments UA Bili (test code = Negative *NA*(06/09/16 UA Bili) 3:00 PM) [facility] AND [id number] 20:00:00 Test Item Value Reference Range Interpretation Comments UA Ketones (test code = UA Ketones) 15 mg/dL [facility] AND [id number] 20:00:00 Test Item Value Reference Range Interpretation Comments UA Turbidity (test code Slight Cloudy = UA Turbidity) (06/09/16 3:00 PM) [facility] AND [id number] 20:00:00 Test Item Value Reference Range Interpretation Comments UA Protein (test code = UA Protein) 100 mg/dL [facility] AND [id number] 20:00:00 Test Item Value Reference Range Interpretation Comments UA Glucose (test code Negative (06/09/16 3:00 = UA Glucose) PM) [facility] [id number] 20:00:00 Test Item Value Reference Range Interpretation Comments UA pH (test code = UA pH) 6.0 1 5.0-8.0 [facility] [id number] 20:00:00 Test Item Value Reference Range Interpretation Comments UA Color (test code = Dark Yellow (06/09/16 UA Color) 3:00 PM) [facility]] AND [id number] 20:00:00 Test Item Value Reference Range Interpretation Comments UA Spec Grav (test code = UA Spec 1.025 1 Grav) [facility] [id number] 07:03:00 Test Item Value Reference Range Interpretation Comments Hep Bs Ag (test code Negative *NA*(06/08/16 = Hep Bs Ag) 2:03 AM) [facility] [id number] 07:03:00 Test Item Value Reference Range Interpretation Comments Hep A IgM (test code Negative *NA*(06/08/16 = Hep A IgM) 2:03 AM) [id number] 07:03:00 Test Item Value Reference Range Interpretation Comments Hep C Ab (test code = Negative *NA*(06/08/16 Hep C Ab) 2:03 AM) [id number] 07:03:00 Test Item Value Reference Range Interpretation Comments Hep B Core IgM (test Negative *NA*(06/08/16 code = Hep B Core 2:03 AM) IgM) [facility] [id number] 17:29:00 Test Item Value Reference Range Interpretation Comments Troponin-I (test code no gt See_Comment [Auto mated message] The = Troponin-I) system which g enerated this result transmit yakov reference range : <=0.40. The reference r nitesh was not used to interpr et this result as duane l/abnormal. [facility] [id number] 09:29:00 Test Item Value Reference Range Interpretation Comments Phosphorus (test code = Phosphorus) 3.6 2.5-4.5 [id number] 09:29:00 Test Item Value Reference Range Interpretation Comments aPTT (test code = aPTT) 28.9 s 22.9-35.8 [facility] [id number] 09:29:00 Test Item Value Reference Range Interpretation Comments PROTIME (test code = PROTIME) 13.1 s 12.0-14.7 [id number] 09:29:00 Test Item Value Reference Range Interpretation Comments INR (test code = INR) 0.97 0.85-1.17 [facility] [id number] 09:29:00 Test Item Value Reference Range Interpretation Comments Etoh (%) (test code = Etoh (%)) no gt [facility] [id number] 09:29:00 Test Item Value Reference Range Interpretation Comments Ethanol Lvl (test code = Ethanol Lvl) no gt [facility] [id number] 06:54:00 Test Item Value Reference Range Interpretation Comments UDS Note (test code = See Note (06/07/16 1:54 UDS Note) AM) [facility] [id number] 06:54:00 Test Item Value Reference Range Interpretation Comments U Methadone Scr (test Negative *NA*(06/07/16 code = U Methadone Scr) 1:54 AM) [facility] [id number] 06:54:00 Test Item Value Reference Range Interpretation Comments U Propoxyph Scr (test Negative *NA*(06/07/16 code = U Propoxyph Scr) 1:54 AM) [facility] [id number] 06:54:00 Test Item Value Reference Range Interpretation Comments U Benzodia Scr (test Negative *NA*(06/07/16 code = U Benzodia Scr) 1:54 AM) [facility] [id number] 06:54:00 Test Item Value Reference Range Interpretation Comments U Iesha Scr (test code Negative *NA*(06/07/16 = U Iesha Scr) 1:54 AM) [facility] [id number] 06:54:00 Test Item Value Reference Range Interpretation Comments U Amph Scr (test code Negative *NA*(06/07/16 = U Amph Scr) 1:54 AM) [facility] [id number] 06:54:00 Test Item Value Reference Range Interpretation Comments U Phencyc Scr (test Negative *NA*(06/07/16 code = U Phencyc Scr) 1:54 AM) [facility] [id number] 06:54:00 Test Item Value Reference Range Interpretation Comments U Opiate Scr (test Positive *ABN*(06/07/16 code = U Opiate Scr) 1:54 AM) [facility] [id number] 06:54:00 Test Item Value Reference Range Interpretation Comments U Cannab Scr (test Positive *ABN*(06/07/16 code = U Cannab Scr) 1:54 AM) [facility] [id number] 06:54:00 Test Item Value Reference Range Interpretation Comments U Cocaine Scr (test Negative *NA*(06/07/16 code = U Cocaine Scr) 1:54 AM) [facility] [id number] 06:54:00 Test Item Value Reference Range Interpretation Comments UA RBC (test code 21-50 /HPF See_Comment [Automate d message] The = UA RBC) system which ge nerated this result tra nsmitted reference range : <=2. The reference range was not used to interpr et this result as normal/abnormal . [facility] [id number] 06:54:00 Test Item Value Reference Range Interpretation Comments UA Bacteria (test code = None Seen (06/07/16 UA Bacteria) 1:54 AM) [facility] [id number] 06:54:00 Test Item Value Reference Range Interpretation Comments UA Bili (test code = Negative *NA*(06/07/16 UA Bili) 1:54 AM) [facility] [id number] 06:54:00 Test Item Value Reference Range Interpretation Comments UA WBC (test code = UA WBC) 11-20 /HPF [facility] [id number] 06:54:00 Test Item Value Reference Range Interpretation Comments UA Sq Epi (test code = UA Sq Occasional /LPF Epi) [facility] [id number] 06:54:00 Test Item Value Reference Range Interpretation Comments UA Leuk Est (test Moderate *ABN*(06/07/16 code = UA Leuk Est) 1:54 AM) [facility] [id number] 06:54:00 Test Item Value Reference Range Interpretation Comments UA Nitrite (test code Negative (06/07/16 1:54 = UA Nitrite) AM) [facility] AND [id number] 06:54:00 Test Item Value Reference Range Interpretation Comments UA Urobilinogen (test code = UA 0.2 0.1-1.0 Urobilinogen) [facility] AND [id number] 06:54:00 Test Item Value Reference Range Interpretation Comments UA Blood (test code = Large *ABN*(06/07/16 UA Blood) 1:54 AM) [facility] AND [id number] 06:54:00 Test Item Value Reference Range Interpretation Comments UA pH (test code = UA pH) 7.0 1 5.0-8.0 [facility] AND [id number] 06:54:00 Test Item Value Reference Range Interpretation Comments UA Spec Grav (test code = UA Spec 1.015 1 Grav) [facility] AND [id number] 06:54:00 Test Item Value Reference Range Interpretation Comments UA Turbidity (test code Slight Cloudy = UA Turbidity) (06/07/16 1:54 AM) [facility] AND [id number] 06:54:00 Test Item Value Reference Range Interpretation Comments UA Ketones (test code = UA Ketones) 15 mg/dL [facility] AND [id number] 06:54:00 Test Item Value Reference Range Interpretation Comments UA Glucose (test code Negative (06/07/16 1:54 = UA Glucose) AM) [facility] AND [id number] 06:54:00 Test Item Value Reference Range Interpretation Comments UA Protein (test code = UA >=300 mg/dL Protein) [facility] AND [id number] 06:54:00 Test Item Value Reference Range Interpretation Comments UA Color (test code = Crowell *ABN*(06/07/16 UA Color) 1:54 AM) [facility] [id number] 06:54:00 Test Item Value Reference Range Interpretation Comments U Creatinine (test code = U Creatinine) 24.00 [facility] [id number] 06:54:00 Test Item Value Reference Range Interpretation Comments U Microalb (test code = U Microalb) 1810.0 [facility] [id number] 06:54:00 Test Item Value Reference Range Interpretation Comments U Alb/Crea (test code = U Alb/Crea) 7541.7 [facility] [id number] 06:54:00 Test Item Value Reference Range Interpretation Comments U Creatinine (test code = U Creatinine) 24.00 [facility] [id number] 06:54:00 Test Item Value Reference Range Interpretation Comments U Prot/Creat (test code = U Prot/Creat) 11.3 [facility] [id number] 06:54:00 Test Item Value Reference Range Interpretation Comments U Protein (test code = U Protein) 271.0 [facility]
[2022-10-11] MEDS ORDERED: LIDOCAINE 1% MPF 30 ML VIAL ONE (08:33)
[2022-10-11 10:40] LABS: Appearance TURBID (CLEAR); Body Fluid Source SYNOVIAL; Body Fluid WBC 24898 /mm^3; Color of fluid Yellow (COLORLESS)
--- NOTE | 2022-10-11 11:44 | EDPHYS ---
Physician Documentation [facility] Name: Bishop Thakkar Age: 72 yrs Sex: Male : 1950 Arrival Date: 10/11/2022 Time: 08:19 Bed 6 Private MD: ED Physician Ger Duron HPI: 10/11 08:34 This 72 yrs old Black Male presents to ER via EMS with complaints of Left knee pain, rt swelling. 08:34 The patient presents with pain, swelling. The complaints affect the left knee. Onset: rt The symptoms/episode began/occurred 2 day(s) ago. Modifying factors: the symptoms are aggravated by movement. Associated signs and symptoms: The patient has no apparent associated signs or symptoms. Severity of symptoms: At their worst the symptoms were moderate. The patient has experienced similar episodes in the past, and the symptoms today are exactly the same. Historical: - Allergies: 08:21 No Known Allergies; ap3 - Home Meds: 08:21 Aspirin Oral [Active]; ap3 - PSHx: 08:21 back sx X's 2; ap3 - Immunization history:: Client reports receiving the 2nd dose of the Covid vaccine, Flu vaccine is up to date. - Social history:: Smoking status: Patient reports the use of cigarette tobacco products, smokes one pack cigarettes per day. Patient uses alcohol, on a daily basis. street drugs, marijuana. - Family history:: not pertinent. ROS: 08:34 Constitutional: Negative for fever, chills, and weight loss, Cardiovascular: Negative rt for chest pain, palpitations, and edema, Respiratory: Negative for shortness of breath, cough, wheezing, and pleuritic chest pain, Abdomen/GI: Negative for abdominal pain, nausea, vomiting, diarrhea, and constipation, Skin: Negative for injury, rash, and discoloration, Neuro: Negative for headache, weakness, numbness, tingling, and seizure, Psych: Negative for depression, anxiety, suicide ideation, homicidal ideation, and hallucinations. 08:34 MS/extremity: Positive for pain, swelling. Exam: 08:34 Constitutional: This is a well developed, well nourished patient who is awake, alert, rt and in no acute distress. Head/Face: Normocephalic, atraumatic. Chest/axilla: Normal chest wall appearance and motion. Nontender with no deformity. No lesions are appreciated. Cardiovascular: Regular rate and rhythm with a normal S1 and S2. No gallops, murmurs, or rubs. Normal PMI, no JVD. No pulse deficits. Respiratory: Lungs have equal breath sounds bilaterally, clear to auscultation and percussion. No rales, rhonchi or wheezes noted. No increased work of breathing, no retractions or nasal flaring. Abdomen/GI: Soft, non-tender, with normal bowel sounds. No distension or tympany. No guarding or rebound. No evidence of tenderness throughout. Skin: Warm, dry with normal turgor. Normal color with no rashes, no lesions, and no evidence of cellulitis. Neuro: Awake and alert, GCS 15, oriented to person, place, time, and situation. Cranial nerves II-XII grossly intact. Motor strength 5/5 in all extremities. Sensory grossly intact. Cerebellar exam normal. Normal gait. Psych: Awake, alert, with orientation to person, place and time. Behavior, mood, and affect are within normal limits. 08:34 Musculoskeletal/extremity: Swelling to the left lower extremity, no appreciable warmth, erythema. Pulses, motor, sensation intact. Vital Signs: 08:19 BP 167 / 83; Pulse 82; Resp 18; Temp 98.6; Pulse Ox 96% ; Weight 70.76 kg; Height 5 ft. ap3 9 in. (175.26 cm); Pain 8/10; 09:31 BP 142 / 92; Pulse 84; Pulse Ox 96% on R/A; ap3 10:39 BP 150 / 87; Pulse 77; Pulse Ox 95% on R/A; ap3 11:10 BP 140 / 79; Pulse 69; Pulse Ox 96% on R/A; ap3 08:19 Body Mass Index 23.04 (70.76 kg, 175.26 cm) ap3 Procedures: 08:53 Joint Treatment: Aspiration of left knee using 18 gauge needle, Lidocaine, Removed 50 rt ml's of cloudy fluid, Specimen sent to lab. Dressed with band aid, Patient tolerated well. Cleansed with ChloraPrep prior to procedure. MDM: 08:19 Patient medically screened. rt 11:44 Differential diagnosis: Gout, effusion, septic arthritis, inflammatory arthritis. Data rt reviewed: vital signs, nurses notes, lab test result(s). I considered the following discharge prescriptions or medication management in the emergency department Medications were administered in the Emergency Department. See MAR. Test considered but Not performed: Labs: Stable vital signs, labs not indicated. X-ray: Chronic issue, x-ray not indicated. Response to treatment: the patient's symptoms have resolved after treatment. ED course: Patient presents to the ED with recurrence of an effusion, consistent with prior effusions. The fluid was cloudy, with crystals and WBCs, less than 50,000. Patient is able to move his joint well, with significant improvement of his symptoms. No fever. For this reason, believe that septic arthritis is unlikely, however, nonetheless we will send for fluid culture. Protein and glucose and LDH are send out labs, will send nonetheless. Patient to follow-up with his primary care, orthopedic surgery. Patient was informed that he most likely has gout. Patient informed that septic arthritis not completely ruled out, however, it is unlikely.. 10/11 08:52 Order name: Misc. Lab Test rt 10/11 08:52 Order name: Misc. Lab Test rt 10/11 08:52 Order name: Misc. Lab Test rt 10/11 09:06 Order name: Body Fluid Cell Count; Complete Time: 11:16 EDMS 10/11 09:07 Order name: GLUCOSE, SYNOVIAL FLUID EDMS 10/11 09:07 Order name: LD, SYNOVIAL FLUID EDMS 10/11 09:07 Order name: TOTAL PROTEIN, SYNOVIAL FLUID EDMS 10/11 09:07 Order name: URIC ACID, SYNOVIAL FLUID EDMS 10/11 09:07 Order name: Body Fluid Crystals; Complete Time: 10:14 EDMS 10/11 09:25 Order name: Body Fluid Culture EDMS Administered Medications: 09:20 Drug: Lidocaine (1 %) 5 ml {Note: by MD Oliverio.} Volume: 5 ml; Route: Infiltration;ap3 Disposition Summary: 10/11/22 11:43 Discharge Ordered Location: Home rt Problem: an acute exacerbation rt Symptoms: have improved rt Condition: Stable rt Diagnosis - Effusion, left knee rt Followup: rt - With: Private Physician - When: 2 - 3 days - Reason: Discharge Instructions: - Discharge Summary Sheet rt - Knee Effusion rt - Knee Arthrocentesis rt Forms: - Medication Reconciliation Form rt - Thank You Letter rt - Antibiotic Education rt - Prescription Opioid Use rt Prescriptions: - Ibuprofen 800 mg Oral Tablet - take 1 tablet by ORAL route every 8 hours As needed take with food; 30 tablet; rt Refills: 0, Product Selection Permitted Signatures: Dispatcher [employer] Anh Holden RN RN ap3 Ger Duron MD MD rt Corrections: (The following items were deleted from the chart) 09:25 08:53 Miscellaneous Lab Test+R.LAB.BRZ ordered. KERRIE EDOH
--- NOTE | 2022-10-11 11:44 | ER ---
Nurse's Notes [facility] Name: Bishop Thakkar Age: 72 yrs Sex: Male : 1950 Arrival Date: 10/11/2022 Time: 08:19 Bed 6 Private MD: Diagnosis: Effusion, left knee Presentation: 10/11 08:19 Chief complaint: Patient states: he has left knee pain and swelling that started approx ap3 2 days ago. Patient states that he typically needs to get the knee drained once a year. patient reports this is something that occurs once a year since he was 20 from an old basketball injury. Coronavirus screen: At this time, the client does not indicate any symptoms associated with coronavirus-19. Ebola Screen: No symptoms or risks identified at this time. Initial Sepsis Screen: Does the patient meet any 2 criteria? No. Patient's initial sepsis screen is negative. Does the patient have a suspected source of infection? No. Patient's initial sepsis screen is negative. Risk Assessment: Do you want to hurt yourself or someone else? Patient reports no desire to harm self or others. Onset of symptoms was October 09, 2022. 08:19 Method Of Arrival: [facility] ap3 08:19 Acuity: [facility] 3 ap3 Triage Assessment: 08:23 General: Appears uncomfortable, Behavior is calm, cooperative, appropriate for age. ap3 Pain: Complains of pain in left knee Pain currently is 8 out of 10 on a pain scale. Neuro: Level of Consciousness is awake, alert, obeys commands, Oriented to person, place, time, situation, Gait is unsteady. Cardiovascular: Patient's skin is warm and dry. Respiratory: Airway is patent Respiratory effort is even, unlabored, Respiratory pattern is regular, symmetrical. Musculoskeletal: Swelling present in left knee. Historical: - Allergies: 08:21 No Known Allergies; ap3 - Home Meds: 08:21 Aspirin Oral [Active]; ap3 - PSHx: 08:21 back sx X's 2; ap3 - Immunization history:: Client reports receiving the 2nd dose of the Covid vaccine, Flu vaccine is up to date. - Social history:: Smoking status: Patient reports the use of cigarette tobacco products, smokes one pack cigarettes per day. Patient uses alcohol, on a daily basis. street drugs, marijuana. - Family history:: not pertinent. Screenin:22 [facility] ED Fall Risk Assessment (Adult) History of falling in the last 3 months, ap3 including since admission No falls in past 3 months (0 pts) Intoxicated or Sedated No (0 pts) Impaired Gait Yes (1 pt) Mobility Assist Device Used No (0 pt) Altered Elimination Yes (1 pt) Score/Fall Risk Level 0 - 2 = Low Risk Oriented to surroundings, Maintained a safe environment, Educated pt \T\ family on fall prevention, incl call for assistance when getting out of bed, Assessed \T\ reinforced patient's understanding of fall precautions. Abuse screen: Denies threats or abuse. Nutritional screening: No deficits noted. Tuberculosis screening: No symptoms or risk factors identified. Assessment: 12:33 Reassessment: patient waiting for family to arrive prior to departure. ap3 Vital Signs: 08:19 BP 167 / 83; Pulse 82; Resp 18; Temp 98.6; Pulse Ox 96% ; Weight 70.76 kg; Height 5 ft. ap3 9 in. (175.26 cm); Pain 8/10; 09:31 BP 142 / 92; Pulse 84; Pulse Ox 96% on R/A; ap3 10:39 BP 150 / 87; Pulse 77; Pulse Ox 95% on R/A; ap3 11:10 BP 140 / 79; Pulse 69; Pulse Ox 96% on R/A; ap3 08:19 Body Mass Index 23.04 (70.76 kg, 175.26 cm) ap3 ED Course: 08:19 Patient arrived in ED. kc6 08:19 Anh Connolly, HAFSA is Primary Nurse. ap3 08:19 Ger Duron MD is Attending Physician. rt 08:21 Triage completed. ap3 08:24 Arm band placed on right wrist. ap3 08:24 Patient has correct armband on for positive identification. Bed in low position. Call ap3 light in reach. Side rails up X2. Adult w/ patient. chef's assistant on. Pulse ox on. NIBP on. Door closed. Noise minimized. 12:08 No provider procedures requiring assistance completed. Patient did not have IV access ap3 during this emergency room visit. Administered Medications: 09:20 Drug: Lidocaine (1 %) 5 ml {Note: by MD Oliverio.} Volume: 5 ml; Route: Infiltration;ap3 Medication: 12:08 VIS not applicable for this client. ap3 Outcome: 11:43 Discharge ordered by . rt 12:08 Condition: good ap3 12:08 Instructed on discharge instructions, follow up and referral plans. medication usage, Demonstrated understanding of instructions, follow-up care, medications, Prescriptions given X 1. 14:10 Patient left the ED. ap3 Signatures: Anh Connolly RN RN ap3 Coty Ibanez RN RN kc6 Ger Duron MD MD rt
[2022-10-11 14:23] VITALS: TEMP 98.6
[2022-10-11 14:26] VITALS: BP 140/79; O2SAT 96
== END 2022-10-11 14:10 | disposition home or self-care (01) ==
LOC: ER 08:17
PROC: 0S9D3ZX Drainage of Left Knee Joint, Percutaneous Approach, Diagnostic (ICD-10-PCS; principal; 2022-10-11)
DX: M25.462 Effusion, left knee (principal); F17.210 Nicotine dependence, cigarettes, uncomplicated; Z79.82 Long term (current) use of aspirin
CPT/HCPCS: 87070; 36415; 89050; 83615; 84157; 82945; 84560; 89060; 99284; 20610; J2001

== ENCOUNTER 2023-06-04 05:15 | Observation (INO) | payer OTHER ==
--- NOTE | 2023-05-31 10:18 | RAD REPORT ---
EXAM DESCRIPTION: RAD - Chest Pa And Lat (2 Views) - 05/31/2023 10:13 am CLINICAL HISTORY: pre op for surgery COMPARISON: No comparisons FINDINGS: Lines: None. Lungs: No evidence of edema or pneumonia. Calcified right lung nodule. Pleural: No significant pleural effusions or pneumothorax. Cardiac: The heart size is within normal limits. Mediastinum: Calcified hilar lymph nodes. Bones: No acute fractures. Other: None IMPRESSION: No acute cardiopulmonary disease.
[2023-05-31 10:37] LABS: Specific Gravity 1.017 (1.005-1.030); Urine Bilirubin NEGATIVE (Negative); Urine Blood Negative (Negative); Urine Clarity Clear (Clear); Urine Color Light-Yellow (Yellow); Urine Glucose NEGATIVE (Negative); Urine Protein NEGATIVE (Negative); Urine Urobilinogen Normal (Normal)
[2023-05-31 10:42] LABS: Absolute Lymphocytes (CBC) 1.9 K/uL (0.7-4.9); Hematocrit 44.6 % (39.6-49.0); Lymphocytes % 31.1 % (15.3-44.8); MPV 7.1 fL (7.6-11.3); Platelets 168 thou/uL (152-406)
[2023-05-31 10:44] LABS: Protime INR 0.97
[2023-05-31 10:54] LABS: Bilirubin Total 0.7 mg/dL (0.2-1.0); Potassium 4.5 mEq/L (3.5-5.1); Protein, Total 8.5 g/dL (6.4-8.2)
--- NOTE | 2023-06-02 14:50 | EKG ---
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
[2023-06-04] MEDS ORDERED: GABAPENTIN 100 MG CAP ONE ×2 (05:54→06:37)
[2023-06-04] MEDS ORDERED: Oxycodone HCl/Acetaminophen 5/325 MG TAB ONE (05:54)
[2023-06-04] MEDS ORDERED: CELECOXIB 100 MG CAPSULE ONE (05:54)
[2023-06-04] MEDS ORDERED: Ringers Lactate 1,000 ML IV ONE ×2 (05:55→10:30)
[2023-06-04] MEDS ORDERED: ACETAMINOPHEN 500 MG TAB ONE (05:55)
[2023-06-04] MEDS ORDERED: LIDOCAINE 2% MPF 5 ML VIAL ONE ×2 (06:18→06:37)
[2023-06-04] MEDS ORDERED: FENTANYL CITR 100 MCG/2 ML ONE (06:18)
[2023-06-04] MEDS ORDERED: EPINEPHRINE/PF 1 MG/ML AMP ONE (06:19)
[2023-06-04] MEDS ORDERED: dexAMETHasone 4 MG/ML VIAL ONE ×2 (06:19→08:47)
[2023-06-04] MEDS ORDERED: MIDAZOLAM HCL 2 MG/2 ML INJ ONE (06:19)
[2023-06-04] MEDS ORDERED: BUPIVACAINE 0.25% PF 30 ML VIAL ONE (06:20)
[2023-06-04] MEDS ORDERED: MAGNESIUM SULFATE 1 gm IVPB 1 GM/100 ML BAG IV ONE (06:32)
[2023-06-04] MEDS ORDERED: SUCCINYLCHOLINE 20 MG/ML (10 ML) IV ONE (06:32)
[2023-06-04] MEDS ORDERED: KETAMINE HCL IN 0.9 % NACL 50 MG/5 ML SYRINGE IV ONE (06:32)
[2023-06-04] MEDS ORDERED: SUGAMMADEX SODIUM 200 MG/2 ML VIAL IV ONE (06:32)
[2023-06-04] MEDS ORDERED: propofoL 200 MG/20 ML VIAL IV ONE (06:37)
[2023-06-04] MEDS ORDERED: DEXMEDETOMIDINE HCL 200 MCG/2 ML VIAL ONE (06:45)
[2023-06-04] MEDS: CEFAZOLIN SODIUM 2 GM/VIAL ONE ×2 (07:04→07:20)
[2023-06-04] MEDS ORDERED: HYDROMORPHONE HCL 2 MG/ML inj ONE (07:12)
[2023-06-04] MEDS: TRANEXAMIC ACID 1,000 MG/10 ML VIAL IV ONE ×3 (07:15→08:50)
[2023-06-04] MEDS ORDERED: EPHEDRINE SULF 50 MG/ML VIAL ONE (07:50)
[2023-06-04] MEDS ORDERED: ONDANSETRON 4 MG/2 ML VIAL ONE (08:47)
[2023-06-04] MEDS ORDERED: ONDANSETRON 4 MG/2 ML VIAL IV PRN (09:14)
--- NOTE | 2023-06-04 09:22 | P.BOP ---
Preoperative diagnosis: left knee djd Postoperative diagnosis: same Primary procedure: left toal knee arthoplasty Estimated blood loss: 100ccs Anesthesia: General Transferred to: Recovery Room Condition: Good
[2023-06-04] MEDS: HYDROMORPHONE HCL 1 MG/ML INJ ONE ×4 (10:00→10:35)
[2023-06-04] MEDS ORDERED: DOCUSATE NA 100 MG CAP PO PRN (12:45)
[2023-06-04 13:33] VITALS: BMI 23.3
--- NOTE | 2023-06-04 14:01 | P.CNS ---
Date of Consult: 06/04/23 Reason for Consult: Medical management Requesting Physician: Andrae Ascencio Chief Complaint: Left total knee arthroplasty History of Present Illness: Patient is a 73-year-old gentleman who came to the hospital for a left total kne e arthroplasty. Patient has a history of coronary artery disease, hypertension, and dyslipidemia.Patient currently is doing well clinically. Patient will be admitted to the hospital for pain control. Continue with physical therapy evaluation. Patient with a history of arthritis and patient was having significant amount of pain on ambulating so patient had a left total knee arthroplasty. Cardiac status is stable. Allergies No Known Allergies Allergy (Verified 06/04/23 07:52) Home Medications: Atorvastatin Calcium 10 mg PO DAILY 05/31/23 Carvedilol [Coreg] 12.5 mg PO DAILY 05/31/23 Cyclobenzaprine HCl 10 mg PO BID 05/31/23 Furosemide [Lasix*] 20 mg PO DAILY 05/31/23 Docusate [Colace Cap*] 100 mg PO DAILY PRN #30 cap 06/05/23 Hydrocodone 7.5/APAP 325 [Plush 7.5/325 mg*] 1 tab PO Q6HP PRN #30 tab 06/05/23 Rivaroxaban [Xarelto] 10 mg PO DAILY #20 tab 06/05/23 - Past Medical/Surgical History Diabetic: No -: HTN -: CAD -: DVT -: heart stent -: back surgery -: heart stents - Social History Smoking Status: Current every day smoker Alcohol use: Yes CD- Drugs: Yes Caffeine use: Yes Place of Residence: Home Review of Systems 10-point ROS is otherwise unremarkable Physical Examination Temp Pulse Resp BP Pulse Ox 97.7 F 57 12 148/76 H 06/04/23 05:15 06/04/23 05:15 06/04/23 05:15 06/04/23 05:15 General: Alert, In no apparent distress, Oriented x3 HEENT: Atraumatic, PERRLA, Mucous membr. moist/pink, EOMI, Sclerae nonicteric Neck: Supple, 2+ carotid pulse no bruit, No LAD, Without JVD or thyroid abnormality Respiratory: Clear to auscultation bilaterally, Normal air movement Cardiovascular: Regular rate/rhythm, Normal S1 S2 Gastrointestinal: Normal bowel sounds, No tenderness Musculoskeletal: No tenderness Integumentary: No rashes Neurological: Normal gait, Normal speech, Normal tone, Normal affect Lymphatics: No axilla or inguinal lymphadenopathy - Problems (1) S/P total knee arthroplasty Status: Acute (2) HTN (hypertension) Status: Acute (3) Dyslipidemia Status: Acute (4) CAD (coronary artery disease) Status: Acute Conclusions/ Impression: Plan: 1. Continue with pain control 2. DVT prophylaxis 3. Monitor H&H 4. Physical therapy evaluation 5. Continue with cardiac meds Critical Care: No Time Spent Managing Pts care (In Minutes): 45
[2023-06-04] MEDS: CEFAZOLIN 1 GM in NA CHLORIDE 0.9% 50 ML IVPB SCH ×2 (14:12→21:50)
[2023-06-04] MEDS: HYDROCODONE/APAP 7.5/325 MG TAB PO PRN (16:56)
--- NOTE | 2023-06-04 20:05 | OP ---
Date of Procedure: 06/04/2023 Surgeon: Andrae sAcencio MD Preoperative Diagnosis: Left knee severe arthritic changes. Postoperative Diagnosis: Left knee severe arthritic changes. Procedure: Left total knee arthroplasty using the [employer] system. Estimated Blood Loss: 100 cc. Complications: There were no complications. Specimens: No pathology specimens were sent. Indications For Operation: Mr. 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 These persist with debilitating pain o n the patient's ADL despite conservative management. Risks, benefits, and alternatives to total knee arthroplasty had been discussed and he had been cleared by medical physicians for a total knee arthr oplasty. The risks, benefits, and alternatives of this particular procedure were discussed with him. He states he understands things as presented and wishes to proceed. Description Of Procedure: Patient has an adductor canal block done in the holding area and was taken to the operating room, placed in supine position. [facility] Following this, a well-padded tourniquet was placed on superior left thigh. Left low er extremity was then prepped and draped in usual sterile fashion for the procedure. The leg was the n elevated, exsanguinated, and knee was bent. Tourniquet was raised. A standard anterior incision w as taken down carefully through skin and soft tissues. Meticulous hemostasis being maintained using a Bovie electrocautery. This leads down to the appropriate level, which was then exploited. The sup eromedial portion of the patella was then marked with a marking pen and a medial parapatellar arthrot dixon was then performed in a standard fashion. There was liberation of approximately 30 cc of rather normal-appearing synovial fluid. Following this, the medial meniscus and ACL were resected and guan la was easily everted. There was a very large bony fragment or at least a concretion in the anterola teral aspect of the knee, which was removed and the lateral meniscus was resected. After this was ex amined, there was quite a bit of dish out of the lateral especially posterior aspect of the tibia, al though the knee was involved in all 3 compartments. Following this, a standard intramedullary alignm ent guide was placed. The distal femur was cut. It was then sized. After the sizing then the remai nder of the femoral cuts were completed. Attention was then turned to the tibia. Care was taken not to place too much slope; however, slight amount of slope was used to allow for resection at the post erolateral aspect of the lateral tibial condyle. The cut was done well. It was felt to be not too m uch sclerosis on the lateral side and it appears to be cut in the correct alignment. Following this, the trial femur and tibia were then placed and with a size 10 poly, it appears to come to full exten gato. It appears to be stable in both flexion and extension. Attention was turned to the patella wh ich was then calipered and cut. The trial patella was placed and it glide anatomically with no sign of subluxation or other problems. After this, the femoral box cut is cut and the tibia was punched. All surfaces were prepped for cementation and the Vanguard tibia and femoral components were then pl aced with the trial poly as well as the patellar button. These were left in place until the cement h ardened. Any unsupported cement was removed. The knee was then brought through full range of motion . The patella appears to glide well, appears to still be balanced. After this, the trial poly was r emoved. Decision was made to move forward with a 10. The 10 was then placed with a locking bar plac ed. After this was brought through full range of motion, it appears to glide well again and it was a gain irrigated and cleansed with no significant overt cement seen. After this, the extensor mechanis m was then repaired in a watertight fashion. This was followed by closure of skin using 2-0 Vicryl f ollowed by jennifer. The patient was then placed in a well-padded sterile dressing, awakened, and jorge en to recovery room in good condition. There were no complications. SE/MODL Voice ID: [id number] Report ID: [id number]
[2023-06-04] MEDS: CYCLOBENZAPRINE 10 MG TAB PO SCH (21:50)
[2023-06-05 03:10] LABS: Hematocrit 37.5 % (39.6-49.0)
[2023-06-05] MEDS ORDERED: ENOXAPARIN 30 MG/0.3 ML SQ SCH (06:00)
[2023-06-05] MEDS: CEFAZOLIN 1 GM in NA CHLORIDE 0.9% 50 ML IVPB SCH (06:08)
[2023-06-05] MEDS ORDERED: ATORVASTATIN 10 MG TAB PO SCH (09:00)
[2023-06-05] MEDS ORDERED: carvediloL 12.5 MG TAB PO SCH (09:00)
[2023-06-05] MEDS ORDERED: FUROSEMIDE 20 MG TABLET PO SCH (09:00)
[2023-06-05] MEDS: CYCLOBENZAPRINE 10 MG TAB PO SCH (10:53)
[2023-06-05] MEDS: HYDROCODONE/APAP 7.5/325 MG TAB PO PRN (10:55)
[2023-06-05 16:32] VITALS: BP 141/71; TEMP 96.9
[2023-06-05 19:07] VITALS: O2SAT 98
== END 2023-06-05 18:35 | disposition home health service (06) ==
LOC: OR 05:15 → 2ND 09:15
PROVIDERS: ADMIT Orthopaedic Surgery; ATTEND Orthopaedic Surgery
PROC: 0SRD069 Replacement of Left Knee Joint with Oxidized Zirconium on Polyethylene Synthetic Substitute, Cemented, Open Approach (ICD-10-PCS; principal; 2023-06-04 07:00)
DX: M17.12 Unilateral primary osteoarthritis, left knee (principal); I25.10 Atherosclerotic heart disease of native coronary artery without angina pectoris; I10 Essential (primary) hypertension; F17.210 Nicotine dependence, cigarettes, uncomplicated; E78.5 Hyperlipidemia, unspecified; Z95.5 Presence of coronary angioplasty implant and graft
CPT/HCPCS: 93005; 85025; 80048; 36415 ×2; 85610; 88305; 88311; 85730; 85018; 85014; 81003; 80053; 71046; 97110 ×2; 97116 ×3; 97139; 97161; 97530 ×2; 94010; 27447; J3475; J2704; J1100 ×2; J0171; J2001 ×2; J1650; J2250; J1170 ×3; J3010; J2405; J7120 ×2; J0690 ×3; 88304; C1776; G0378; G0379